=== PATIENT | male | born 1935 | race Caucasian/White ===

== ENCOUNTER 2023-04-26 23:04 | Emergency (ER) | payer OTHER, MEDICARE ==
[~2023-04-26] VITALS: Ht 182.9 cm; Wt 73.5 kg
[2023-04-27 03:48] VITALS: BP 145/99
== END 2023-04-27 03:50 | disposition home or self-care (01) ==
LOC: ED 23:04
DX: S01.01XA Laceration without foreign body of scalp, initial encounter (principal); Z23 Encounter for immunization; Z88.2 Allergy status to sulfonamides; W22.8XXA Striking against or struck by other objects, initial encounter
CPT/HCPCS: 90715